=== PATIENT | female | born 1970 | race Caucasian/White ===

== ENCOUNTER 2024-05-20 22:49 | Emergency (ER) | payer BC ==
[2024-05-20] MEDS ORDERED: cefTRIAXone (ROCEPHIN) 1 GM VIAL ONE (23:45)
[2024-05-20] MEDS ORDERED: Sterile Water 10 ML ONE (23:46)
== END 2024-05-21 00:28 | disposition home or self-care (01) ==
LOC: BURERS 22:49
DX: J02.9 Acute pharyngitis, unspecified (principal)
CPT/HCPCS: 87070; 87081; 87430; 96372; 99283; J0696